=== PATIENT | male | born 1970 | race American Indian/Alaskan Native ===

== ENCOUNTER 2020-01-19 20:49 | Emergency (ER) | payer MEDICARE ==
[2020-01-19 21:33] LABS: Amphetamine Screen,Urine PRESUMPTIVE NEGATIVE; Benzodiazepines Screen,Urine PRESUMPTIVE NEGATIVE; Cannabinoid Screen,Urine PRESUMPTIVE NEGATIVE; Cocaine Screen,Urine PRESUMPTIVE NEGATIVE; Methadone Screen,Urine PRESUMPTIVE NEGATIVE; Opiate Screen,Urine PRESUMPTIVE NEGATIVE
[2020-01-19 21:53] LABS: Basophils # (Auto) 0.1 K/mm3 (0.0-0.1); Basophils % (Auto) 0.6 % (0.0-1.8); Eosinophils # (Auto) 0.2 K/mm3 (0.0-0.4); Eosinophils % (Auto) 2.4 % (0.0-4.3); Hematocrit 38.7 % (35.5-45.6); Hemoglobin 13.1 gm/dl (11.8-15.2); Lymphocytes # (Auto) 2.5 K/mm3 (1.2-5.4); Lymphocytes % (Auto) 25.6 % (13.4-35.0); Mean Corpuscular HGB Conc 34 % (32-34); Mean Corpuscular Volume 89 fl (84-94); Monocytes # (Auto) 1.3 K/mm3 (0.0-0.8); Monocytes % (Auto) 13.3 % (0.0-7.3); Platelet Count 287 K/mm3 (140-440); Red Blood Count 4.38 M/mm3 (3.65-5.03); Red Cell Distribution Width 14.7 % (13.2-15.2)
[2020-01-19 22:08] LABS: BUN/Creatinine Ratio 16; Blood Urea Nitrogen 13 mg/dL (9-20); Calcium 9.1 mg/dL (8.4-10.2); Hemolysis Index 8
[2020-01-19 22:25] LABS: Bilirubin,Urine NEG (Negative); Blood,Urine NEG (Negative); Color,Urine Yellow (Yellow); Protein,Urine <15 mg/dL mg/dL (Negative); Urobilinogen,Urine < 2.0 mg/dL (<2.0)
--- NOTE | 2020-01-19 22:39 | Emergency Department Report ---
<DAMI KIM - Last Filed: 01/20/20 16:14> ED Psych HPI - General Chief Complaint: Psych Stated Complaint: SUICIDAL Time Seen by Provider: 01/19/20 22:05 - Related Data Home Medications Medication Instructions Recorded Confirmed Last Taken Divalproex [Pepito Robles] 1,500 mg PO HS 01/20/20 01/20/20 01/19/20 Losartan 10 mg PO BID 01/20/20 01/20/20 01/19/20 Metoprolol [Lopressor TAB] 100 mg PO BID 01/20/20 01/20/20 01/19/20 amLODIPine 10 mg PO BID 01/20/20 01/20/20 01/19/20 metFORMIN 500 mg PO BID 01/20/20 01/20/20 01/19/20 traZODone [Desyrel] 100 mg PO HS 01/20/20 01/20/20 01/19/20 Allergies Allergy/AdvReac Type Severity Reaction Status Date / Time Penicillins Allergy Hives Verified 03/02/16 16:14 ziprasidone HCl [From Geodon] Allergy Hives Verified 03/02/16 16:14 ziprasidone mesylate Allergy Hives Verified 03/02/16 16:14 [From Geodon] ED Past Medical Hx - Medications Home Medications: Home Medications Medication Instructions Recorded Confirmed Last Taken Type Divalproex [Pepito Robles] 1,500 mg PO HS 01/20/20 01/20/20 01/19/20 History Losartan 10 mg PO BID 01/20/20 01/20/20 01/19/20 History Metoprolol [Lopressor TAB] 100 mg PO BID 01/20/20 01/20/20 01/19/20 History amLODIPine 10 mg PO BID 01/20/20 01/20/20 01/19/20 History metFORMIN 500 mg PO BID 01/20/20 01/20/20 01/19/20 History traZODone [Desyrel] 100 mg PO HS 01/20/20 01/20/20 01/19/20 History ED Medical Decision Making - Lab Data Result diagrams: 01/19/20 21:31 01/19/20 21:31 - Medical Decision Making Patient was seen by the psychiatric payroll benefits clerk and then the psychiatrist and they have rescinded the 1013. Patient no longer has any complaints of suicidal ideations. He has outpatient follow-up and we have been able to contract for safety with the patient and his . He will return to the emergency department with any worsening of his symptoms, thoughts of harming himself or others, or with any acute distress. Critical Care Time: No ED Disposition Clinical Impression: Suicidal ideation Hypertension Qualifiers: Hypertension type: essential hypertension Qualified Code(s): I10 - Essential (primary) hypertension Disposition: DC-01 TO HOME OR SELFCARE Is pt being admited?: No Condition: Stable Instructions: Depression (ED), Suicide Prevention for Adults (ED), Hypertension (ED) Additional Instructions: Please follow-up with the [facility] or any of the outpatient referrals given to you by the psychiatric team. Return to the emergency department with any worsening of your symptoms, thoughts of harming your self or others, or with any acute distress. Referrals: [facility] [Outside] - 3-5 Days [facility], [Primary Care Provider] - 3-5 Days [facility] [Provider Group] - 3-5 Days <HALLE DOMINGO III - Last Filed: 01/23/20 21:51> ED Psych HPI - General Source: patient Mode of arrival: Stretcher Limitations: No Limitations - History of Present Illness Initial Comments: Patient is a 49-year-old male that presents emergency room with complaints of depression and suicidal ideation. Patient states he plans to shoot himself or hang himself. Patient states that he is been going on for about 3 days and is worsening. Patient states the thoughts are becoming more prominent. Patient denies homicidal ideations. Patient denies hallucinations. Patient states she has a psych history. Patient denies chest pain or shortness of breath. Patient states that when he originally called EMS he told him shortness of breath because he did not want until 911 that he was having suicidal thoughts. Complaint: suicidal ideation, feels depressed -: Sudden Associated Psychiatric Symptoms: depression, suicidal ideation History of same: Yes Quality: constant Improves With: none Worsens With: none Context: significant life stressor Associated Symptoms: denies other symptoms. denies: confusion, headache, shortness of breath, nausea, vomiting, syncope, insomnia If Self Harm: admits thoughts of, has plan ED Review of Systems ROS: Stated complaint: SUICIDAL Other details as noted in HPI Constitutional: denies: chills, fever Eyes: denies: eye pain, eye discharge, vision change ENT: denies: ear pain, throat pain Respiratory: denies: cough, shortness of breath, wheezing Cardiovascular: denies: chest pain, palpitations Endocrine: no symptoms reported Gastrointestinal: denies: abdominal pain, nausea, diarrhea Genitourinary: denies: urgency, dysuria Musculoskeletal: denies: back pain, joint swelling, arthralgia Skin: denies: rash, lesions Neurological: denies: headache, weakness, paresthesias Psychiatric: anxiety, depression, suicidal thoughts Hematological/Lymphatic: denies: easy bleeding, easy bruising ED Past Medical Hx - Past Medical History Previous Medical History?: Yes Hx Hypertension: Yes Hx Psychiatric Treatment: Yes (bipolar, ptsd, schizophrenia) Hx Asthma: Yes - Surgical History Past Surgical History?: No - Family History Family history: no significant - Social History Smoking Status: Never Smoker Substance Use Type: None ED Physical Exam - General Limitations: No Limitations General appearance: alert, in no apparent distress - Head Head exam: Present: atraumatic, normocephalic - Eye Eye exam: Present: normal appearance - ENT ENT exam: Present: mucous membranes moist - Neck Neck exam: Present: normal inspection - Respiratory Respiratory exam: Present: normal lung sounds bilaterally. Absent: respiratory distress - Cardiovascular Cardiovascular Exam: Present: regular rate, normal rhythm. Absent: systolic murmur, diastolic murmur, rubs, gallop - GI/Abdominal GI/Abdominal exam: Present: soft, normal bowel sounds. Absent: distended, tenderness, guarding - Rectal Rectal exam: Present: deferred - Extremities Exam Extremities exam: Present: normal inspection - Back Exam Back exam: Present: normal inspection - Neurological Exam Neurological exam: Present: alert, oriented X3 - Psychiatric Psychiatric exam: Present: depressed, suicidal ideation - Skin Skin exam: Present: warm, dry, intact, normal color. Absent: rash ED Course Vital Signs 01/19/20 01/20/20 01/20/20 20:59 01:40 02:02 Temperature 98.3 F 98.3 F Pulse Rate 59 L 62 Respiratory 18 18 20 Rate Blood Pressure 149/89 Blood Pressure 107/64 [Right] O2 Sat by Pulse 94 98 96 Oximetry 01/20/20 01/20/20 01/20/20 09:19 12:00 15:51 Temperature 97.7 F 97 F L Pulse Rate 64 82 Respiratory 18 18 17 Rate Blood Pressure Blood Pressure 173/88 [Right] O2 Sat by Pulse 95 Oximetry - Reevaluation(s) Reevaluation #1: Initial evaluation done. Patient placed on ER hold. 01/19/20 22:05 Reevaluation #2: Patient is medically cleared. Patient is severely agitated. Patient will be given medications. Patient's labs are essentially unremarkable except for UTI. Patient remained on ER hold. Patient will placed on a 1013. Patient is medically cleared and final disposition will come from our psychiatry team. 01/20/20 00:23 Reevaluation #3: Patient is much more calm after medications. 01/20/20 01:08 ED Medical Decision Making - Lab Data Result diagrams: 01/19/20 21:31 01/19/20 21:31 - Medical Decision Making Patient is a 49-year-old male that presents emergency room with complaints of suicidal ideations. Patient had labs done which were negative and patient is medically cleared. After patient is medically clear, the patient became agitated and aggressive towards the staff. Patient was given Haldol and Ativan and Benadryl. Patient calm down and was placed in a isolation room. Patient is still medically cleared and patient's final disposition will come from our mental health and psychiatry department.. - Differential Diagnosis Agitation, aggressive behavior, suicidal ideation, depression Critical care attestation.: If time is entered above; I have spent that time in minutes in the direct care of this critically ill patient, excluding procedure time. ED Disposition Is pt being admited?: No Does the pt Need Aspirin: No Time of Disposition: 00:27
[2020-01-20] MEDS ORDERED: ZIPRASIDONE MESYLATE 20 MG VIAL IM ONE ×2 (00:20→00:22)
[2020-01-20] MEDS ORDERED: HALOPERIDOL LACTATE 5 MG/1 ML INJ ONE (00:28)
[2020-01-20] MEDS ORDERED: diphenhydrAMINE 50 MG/ML VIAL ONE (00:28)
[2020-01-20] MEDS ORDERED: diphenhydrAMINE 50 MG/ML VIAL IV ONE (00:30)
[2020-01-20] MEDS ORDERED: HALOPERIDOL LACTATE 5 MG/1 ML INJ IM ONE (00:40)
[2020-01-20 15:52] VITALS: BP 173/88
== END 2020-01-20 16:30 ==
LOC: ED 20:49 → EEVIPCON 20:49 → ED 01-20 16:30
DX: R45.851 Suicidal ideations (principal); I10 Essential (primary) hypertension; J45.909 Unspecified asthma, uncomplicated; Z79.899 Other long term (current) drug therapy; Z88.0 Allergy status to penicillin; Z88.8 Allergy status to other drugs, medicaments and biological substances
CPT/HCPCS: 36415; 80048; 80307; 81001; 85025; 87086; 96372; 96374; 99284; J1200; J1630; J3486; 80320; G0480

== ENCOUNTER 2020-06-02 17:44 | Emergency (ER) | payer MEDICARE | END 2020-06-02 18:22 | disposition left against medical advice (07) | LOC: ED 17:44 | DX: U07.1 COVID-19 (principal); R05 Cough; Z53.21 Procedure and treatment not carried out due to patient leaving prior to being seen by health care provider ==